=== PATIENT | male | born 1940 | race Caucasian/White ===

== ENCOUNTER 2019-12-31 15:01 | Day surgery (SDC) | payer OTHER ==
[~2019-12-31] VITALS: Ht 180.3 cm; Wt 102.1 kg
[2019-12-31 12:00] VITALS: BP 117/67
[2019-12-31] MEDS ORDERED: AMIODARONE 450 MG in IV DEXTROSE 5% 250 ML IV PRN (15:30)
[2019-12-31] MEDS: NOREPINEPHRINE VIAL 32 MG in IV D5W 250ML IV PRN (15:49)
--- NOTE | 2019-12-31 15:51 | RAD ---
Ultrasound-guided liver biopsy 12/31/2019 INDICATION: Transplant evaluation Discussion: Ultrasound-guided liver biopsy was performed at the bedside. 2 18-gauge cores were obtained and placed between saline soaked Telfa dressings. The needle was removed. Manual pressure was held. No immediate complications were identified. Reference ultrasound images were saved the medical record. Impression: Ultrasound-guided liver biopsy
[2019-12-31] MEDS ORDERED: VECURONIUM BOLUS 10 MG VIAL. IV ONE (16:30)
--- NOTE | 2019-12-31 17:24 | RAD ---
AP chest. HISTORY: Central line placement AP view was taken of the chest. There is a right jugular central line which extends to the superior vena cava in good position. There is an endotracheal tube at the level aortic arch without change. NG tube extends into the stomach. There is increased consolidation or atelectasis of the left lower lobe. A left pleural effusion is possible. There is mild atelectasis or infiltrate in the right lung base. The more diffuse right lung infiltrates noted on the prior study have improved. IMPRESSION: 1. Right central line in good position. 2. No pneumothorax. 3. Worsening infiltrate or atelectasis left lower lobe with possible left effusion. 4. Mild increase atelectasis or infiltrate right lower lobe. Electronically signed by: Abdirashid Lobato MD (12/31/2019 5:21 PM) [id number]
[2019-12-31 17:27] LABS: BASO % 0 % (0-3); EOS # 0.1 x10^3/uL (0.0-0.7); EOS % 1 % (0-3); HEMATOCRIT 35.9 % (39.0-53.0); HEMOGLOBIN 12.2 g/dL (13.0-17.5); LYMPH # 1.3 x10^3/uL (1.0-4.8); LYMPH % 12 % (24-48); MEAN CORPUSCULAR HEMOGLOBIN 31 pg (25-35); MEAN CORPUSCULAR HGB CONC 34 g/dL (31-37); MEAN CORPUSCULAR VOLUME 92 fL (79-100); MONO # 1.3 x10^3/uL (0.0-1.1); MONO % 12 % (0-9); NEUT # 8.2 x10^3/uL (1.8-7.7); NEUT % 76 % (31-73); PLATELET COUNT 152 x10^3/uL (140-400); RED CELL DISTRIBUTION WIDTH 13.7 % (11.5-14.5); WHITE BLOOD COUNT 10.9 x10^3/uL (4.0-11.0)
[2019-12-31 17:49] LABS: CALCIUM 7.3 mg/dL (8.5-10.1); GFR 20.4; POTASSIUM 3.7 mmol/L (3.5-5.1)
[2019-12-31 17:53] LABS: AMYLASE 208 U/L (25-115); LIPASE 1177 U/L (73-393)
[2019-12-31 17:56] LABS: DIRECT BILIRUBIN 0.3 mg/dL (0.0-0.2); TOTAL PROTEIN 4.3 g/dL (6.4-8.2)
[2019-12-31] MEDS: VASOPRESSIN 20 UNIT in IV DEXTROSE 5% 100ML 100 ML IV PRN ×2 (18:00→23:09)
[2019-12-31] MEDS: PHENYLEPHRINE INJ 50 MG in IV NORMAL SALINE 250ML 250 ML IV PRN ×2 (18:02→22:04)
[2019-12-31] MEDS ORDERED: EPINEPHrine SYRINGE 1 MG/10 ML SYRINGE IV ONE (18:15)
[2019-12-31 20:13] LABS: BILIRUBIN,URINE NEGATIVE (NEG); CLARITY,URINE CLOUDY; COLOR,URINE YELLOW; NITRITE,URINE NEGATIVE (NEG); PH,URINE 5.5 (<5.0-8.0); PROTEIN,URINE 100 mg/dL (NEG-TRACE); UROBILINOGEN,URINE 0.2 mg/dL (0.2 mg/dL)
[2019-12-31 20:34] LABS: BACTERIA,URINE 0 /HPF (0-FEW); RBC,URINE RARE /HPF (0-2); WBC,URINE RARE /HPF (0-4)
[2019-12-31] MEDS: EPINEPHrine VIAL 5 MG in IV NORMAL SALINE 250ML 250 ML IV PRN ×2 (22:04→23:10)
[2019-12-31] MEDS ORDERED: SODIUM BICARB ADULT 8.4% 50 MEQ/50 ML DISP.SYRIN. ONE (22:34)
[2019-12-31] MEDS ORDERED: SODIUM BICARB ADULT 8.4% 50 MEQ/50 ML DISP.SYRIN. IV ONE (22:45)
[2019-12-31] MEDS ORDERED: CALCIUM CHLORIDE 1,000 MG/10 ML DISP.SYRIN IV ONE (22:45)
[2019-12-31 22:49] LABS: PROTHROMBIN TIME PATIENT 21.3 SEC (11.7-14.0)
[2019-12-31 22:56] LABS: BASO % 0 % (0-3); EOS # 0.1 x10^3/uL (0.0-0.7); EOS % 1 % (0-3); HEMATOCRIT 36.2 % (39.0-53.0); HEMOGLOBIN 11.4 g/dL (13.0-17.5); LYMPH # 2.5 x10^3/uL (1.0-4.8); LYMPH % 25 % (24-48); MEAN CORPUSCULAR HEMOGLOBIN 31 pg (25-35); MEAN CORPUSCULAR HGB CONC 31 g/dL (31-37); MEAN CORPUSCULAR VOLUME 99 fL (79-100); MONO # 0.7 x10^3/uL (0.0-1.1); MONO % 7 % (0-9); NEUT # 6.6 x10^3/uL (1.8-7.7); NEUT % 67 % (31-73); PLATELET COUNT 150 x10^3/uL (140-400); RED BLOOD COUNT 3.68 x10^6/uL (4.30-5.70); RED CELL DISTRIBUTION WIDTH 14.2 % (11.5-14.5); WHITE BLOOD COUNT 9.8 x10^3/uL (4.0-11.0)
[2019-12-31 23:03] LABS: ALBUMIN 1.7 g/dL (3.4-5.0); CALCIUM 7.4 mg/dL (8.5-10.1); CREATININE 3.9 mg/dL (0.7-1.3); GFR 15.1; POTASSIUM 4.6 mmol/L (3.5-5.1)
[2019-12-31] MEDS: INSULIN REGULAR VIAL 100 UNIT in IV NORMAL SALINE 100ML 100 ML IV PRN (23:10)
[2019-12-31 23:11] LABS: DIRECT BILIRUBIN 0.4 mg/dL (0.0-0.2); MAGNESIUM 2.1 mg/dL (1.8-2.4); TOTAL BILIRUBIN 1.1 mg/dL (0.2-1.0); TOTAL PROTEIN 4.3 g/dL (6.4-8.2)
[2019-12-31 23:13] LABS: PHOSPHORUS 10.2 mg/dL (2.6-4.7)
[2019-12-31] MEDS ORDERED: HEPARIN 25,000UTS/250ML PREMIX 250 ML IV PRN (23:45)
[2019-12-31] MEDS: SODIUM BICARBONATE VIAL 150 MEQ in IV 1/2 NORMAL SALINE 1,000 ML IV SCH (23:56)
[2020-01-01] MEDS: EPINEPHRINE IV PRN ×2 (00:52→05:30)
[2020-01-01] MEDS: NORMAL SALINE IV PRN ×2 (00:52→05:30)
[2020-01-01] MEDS ORDERED: SODIUM BICARB ADULT 8.4% 50 MEQ/50 ML DISP.SYRIN. IV ONE ×3 (01:30→09:15)
[2020-01-01] MEDS: PHENYLEPHRINE INJ 50 MG in IV NORMAL SALINE 250ML 250 ML IV PRN (02:30)
[2020-01-01 02:48] LABS: BASE EXCESS ABG -30 mmol/L (-3-3); HCO3 ABG 6 mmol/L (21-28); PCO2 ABG 53 mmHg (35-46); PO2 ABG 66 mmHg (65-108); SAT O2 ABG 82 % (92-99)
[2020-01-01] MEDS: INSULIN REGULAR VIAL 100 UNIT in IV NORMAL SALINE 100ML 100 ML IV PRN (03:14)
[2020-01-01] MEDS: NOREPINEPHRINE VIAL 32 MG in IV D5W 250ML IV PRN (03:15)
[2020-01-01 04:16] LABS: FIO2 ABG 100
[2020-01-01 04:16] LABS: BASO % 0 % (0-3); EOS # 0.1 x10^3/uL (0.0-0.7); EOS % 0 % (0-3); HEMATOCRIT 34.7 % (39.0-53.0); HEMOGLOBIN 11.3 g/dL (13.0-17.5); LYMPH # 2.2 x10^3/uL (1.0-4.8); LYMPH % 15 % (24-48); MEAN CORPUSCULAR HEMOGLOBIN 32 pg (25-35); MEAN CORPUSCULAR HGB CONC 33 g/dL (31-37); MEAN CORPUSCULAR VOLUME 97 fL (79-100); MONO # 1.1 x10^3/uL (0.0-1.1); MONO % 8 % (0-9); NEUT # 10.8 x10^3/uL (1.8-7.7); NEUT % 76 % (31-73); PLATELET COUNT 143 x10^3/uL (140-400); RED BLOOD COUNT 3.59 x10^6/uL (4.30-5.70); RED CELL DISTRIBUTION WIDTH 13.6 % (11.5-14.5); WHITE BLOOD COUNT 14.2 x10^3/uL (4.0-11.0)
[2020-01-01 04:31] LABS: PROTHROMBIN TIME PATIENT 28.2 SEC (11.7-14.0)
[2020-01-01 04:43] LABS: ALBUMIN 1.7 g/dL (3.4-5.0); CALCIUM 8.9 mg/dL (8.5-10.1); CREATININE 3.8 mg/dL (0.7-1.3); DIRECT BILIRUBIN 0.2 mg/dL (0.0-0.2); GFR 15.5; MAGNESIUM 2.3 mg/dL (1.8-2.4); POTASSIUM 4.3 mmol/L (3.5-5.1); TOTAL BILIRUBIN 1.6 mg/dL (0.2-1.0); TOTAL PROTEIN 4.7 g/dL (6.4-8.2)
[2020-01-01] MEDS ORDERED: CALCIUM CHLORIDE 1,000 MG/10 ML DISP.SYRIN IV ONE (04:45)
[2020-01-01 04:55] LABS: BASE EXCESS ABG -23 mmol/L (-3-3); CORRECTED PCO2 ABG 53 mmHg; CORRECTED PH ABG 6.88; CORRECTED PO2 ABG 67 mmHg; HCO3 ABG 10 mmol/L (21-28); PCO2 ABG 53 mmHg (35-46); PO2 ABG 66 mmHg (65-108); SAT O2 ABG 87 % (92-99)
[2020-01-01 05:01] LABS: PHOSPHORUS 10.5 mg/dL (2.6-4.7)
[2020-01-01 05:02] LABS: PARTIAL THROMBOPLASTIN TIME > 150 SEC (24-38)
[2020-01-01 05:40] LABS: FIO2 ABG 100
[2020-01-01] MEDS: VASOPRESSIN 20 UNIT in IV DEXTROSE 5% 100ML 100 ML IV PRN (08:21)
[2020-01-01] MEDS: SODIUM BICARBONATE VIAL 150 MEQ in IV 1/2 NORMAL SALINE 1,000 ML IV SCH (08:22)
[2020-01-01 08:25] LABS: BASO # 0.1 x10^3/uL (0.0-0.2); BASO % 1 % (0-3); EOS # 0.1 x10^3/uL (0.0-0.7); EOS % 0 % (0-3); HEMATOCRIT 28.8 % (39.0-53.0); HEMOGLOBIN 9.4 g/dL (13.0-17.5); LYMPH # 2.7 x10^3/uL (1.0-4.8); LYMPH % 20 % (24-48); MEAN CORPUSCULAR HEMOGLOBIN 32 pg (25-35); MEAN CORPUSCULAR HGB CONC 33 g/dL (31-37); MEAN CORPUSCULAR VOLUME 97 fL (79-100); MONO # 1.7 x10^3/uL (0.0-1.1); MONO % 13 % (0-9); NEUT # 9.3 x10^3/uL (1.8-7.7); NEUT % 67 % (31-73); PLATELET COUNT 114 x10^3/uL (140-400); RED BLOOD COUNT 2.98 x10^6/uL (4.30-5.70); RED CELL DISTRIBUTION WIDTH 13.5 % (11.5-14.5); WHITE BLOOD COUNT 13.9 x10^3/uL (4.0-11.0)
[2020-01-01 08:27] LABS: PROTHROMBIN TIME PATIENT 38.2 SEC (11.7-14.0)
[2020-01-01 08:45] LABS: PARTIAL THROMBOPLASTIN TIME > 150 SEC (24-38)
[2020-01-01 08:48] LABS: CALCIUM 9.8 mg/dL (8.5-10.1); CREATININE 4.2 mg/dL (0.7-1.3); GFR 13.8
[2020-01-01 08:49] LABS: POTASSIUM 5.6 mmol/L (3.5-5.1)
[2020-01-01 08:54] LABS: BASE EXCESS ABG -31 mmol/L (-3-3); HCO3 ABG 4 mmol/L (21-28); PCO2 ABG 34 mmHg (35-46); PO2 ABG 67 mmHg (65-108); SAT O2 ABG 84 % (92-99)
[2020-01-01] MEDS ORDERED: DEXTROSE 50% 25 GM / 50ML DISP.SYRIN. IV PRN (09:00)
[2020-01-01 09:05] LABS: FIO2 ABG 100
[2020-01-01 09:07] LABS: ALBUMIN 1.4 g/dL (3.4-5.0); DIRECT BILIRUBIN 0.2 mg/dL (0.0-0.2); MAGNESIUM 2.7 mg/dL (1.8-2.4); TOTAL BILIRUBIN 2.2 mg/dL (0.2-1.0); TOTAL PROTEIN 4.2 g/dL (6.4-8.2)
--- NOTE | 2020-01-01 09:35 | NUR ---
Patient went into Vfib at 0920. MTEaston RN at bedside and decided to not resuscitate.
[2020-01-01 10:02] LABS: PHOSPHORUS 17.5 mg/dL (2.6-4.7)
== END 2020-01-01 09:20 ==
LOC: SDC 15:01
PROVIDERS: ATTEND Surgery
DX: K76.89 Other specified diseases of liver (principal); R91.8 Other nonspecific abnormal finding of lung field; Z79.899 Other long term (current) drug therapy; Z98.890 Other specified postprocedural states; Z20.828 Contact with and (suspected) exposure to other viral communicable diseases
CPT/HCPCS: 36415; 36600; 47000; 71045; 76942; 80048; 80076; 81001; 82040; 82150; 82247; 82248; 82310; 82805; 82962; 82977; 83605; 83615; 83690; 83735; 84075; 84100; 84155; 84450; 84460; 84484; 85025; 85384; 85610; 85730; 86850; 86900; 86901; 86920; 87040; 87070; 87077; 87186; 87205; 87426; 94003; J0171; J0282; J1644; J1815; J2370; J3490; J7050; J7060; J7030

== ENCOUNTER 2019-12-31 15:47 | Day surgery (SDC) | payer OTHER ==
[2019-12-31 12:00] VITALS: BP 117/67
[2019-12-31] MEDS ORDERED: PHENYLEPHRINE in 0.9% NACL PF 1 MG/10 ML SYRINGE. IV ONE ×2 (16:21→16:23)
[2019-12-31] MEDS ORDERED: PHENYLEPHRINE INJ 50 MG in IV NORMAL SALINE 250ML 250 ML IV PRN (16:30)
== END 2019-12-31 16:00 ==
LOC: SDC 15:47 → SURHOP 15:51 → SDC 16:00
PROVIDERS: ATTEND Surgery
DX: Z52.9 Donor of unspecified organ or tissue (principal)
CPT/HCPCS: J2370